=== PATIENT | female | born 1990 | race Two or more races ===

== ENCOUNTER 2016-07-12 05:14 | Emergency (ER) | payer MEDICAID ==
[~2016-07-12] VITALS: Ht 157.5 cm; Wt 77.2 kg
[2016-07-12 06:13] VITALS: BP 99/63
== END 2016-07-12 06:40 | disposition home or self-care (01) ==
LOC: ER 05:19
DX: S46.912A Strain of unspecified muscle, fascia and tendon at shoulder and upper arm level, left arm, initial encounter (principal); F32.9 Major depressive disorder, single episode, unspecified; X58.XXXA Exposure to other specified factors, initial encounter; Y93.84 Activity, sleeping; Y99.8 Other external cause status; Y92.89 Other specified places as the place of occurrence of the external cause